=== PATIENT | female | born 1945 | race Caucasian/White ===

== ENCOUNTER → 2017-04-21 | Day surgery (SDC) | payer OTHER ==
[~2017-04-21] MED LIST: AMLO5TAB96 PO; BUPIVACAINE/EPINEPHRINE 0.25% 50 ML VIAL ONE; HYCO5UDC PO; ISOSULFAN BLUE 50 MG/5 ML VIAL SQ ONE; LACTATED RINGER'S 1000 ML INJ 1,000 ML ONE; LIDOCAINE 1%/EPINEPHrine 1:200,000 PF SOLN 30 ML VIAL ONE; LOVA1TAB47 PO; MECL25 PO; METO50TA PO; MIDAZOLAM HCL 2 MG/2 ML VIAL ONE; ONDANSETRON HCL 4 MG/2 ML VIAL IV PUSH ONE; PRIN10TA PO; PROPOFOL 200 MG/20 ML AMP IV ONE; SODIUM CHLORIDE 0.9% INJ 100 ML IV ONE; TRIA37.512 PO; VANCOMYCIN HCL 1000 MG VIAL ONE; ZITH500T PO; ceFAZolin 2 GM PREMIX 0 ML ONE; traMADol HCL 50 MG TAB ONE
--- NOTE | 2017-04-27 14:25 | TN ---
cc: DON ESCOBAR MD DATE OF SURGERY: 04/21/2017 PREOPERATIVE DIAGNOSIS Right breast mass, ductal carcinoma. POSTOPERATIVE DIAGNOSIS Right breast mass, ductal carcinoma. PROCEDURE PERFORMED 1. Right breast lumpectomy 2. Right axillary sentinel lymph node biopsy. 3. Oncoplastic tissue rearrangement with flap closure 8 x 3 cm. SURGEON Don Escobar MD. PREPAR[employer] PLANT SUPERVISOR: Dr. Sloan ANESTHESIA GETA. IV FLUIDS See anesthesia sheet. ESTIMATED BLOOD LOSS: 5 cc. DRAINS: None. COMPLICATIONS None. WOUND CLASSIFICATION: Clean. SPECIMENS: 1. Right axillary tissue x2 2. Right axillary sentinel lymph node. 3. Right breast lumpectomy short stitch superior, long stitch lateral, deep stitch double. FINDINGS: Good hemostasis, sentinel lymph node with 5614 count on gamma probe zero backgrounds. INDICATION The patient is a 71 old female who presented with palpable right lateral breast 2.2 cm breast mass. She underwent mammography with biRADS 4, underwent biopsy showing ductal carcinoma therefore decision was made after full discussion regarding breast conservation therapy or mastectomy with reconstruction for excision the patient elected for breast conservation with lumpectomy, sentinel lymph node biopsy and plan for radiation therapy. PROCEDURE IN DETAIL The patient is taken operating suite, placed in supine position. She was prepped and draped in usual sterile fashion after induction of general trache anesthesia. Brief time-out stating correct patient, procedure and surgical site were and all good with us. Attention directed to the right axilla where a small incision was made at the inferior hairline using gamma probe directed guidance dissection to the clavipectoral fascia deepened to the axilla to identify the sentinel lymph node. There was a small axillary tissue that was sent for pathology. However, did not contain initial sentinel node. Final sentinel node [place] 5614 on gamma probe once this was identified and removed zero background count and no palpable adenopathy noted. Next attention was directed to the right breast. Markings were done in order to identify the mass that was noted to be 1 cm from the nipple-areolar complex and very close the skin. Decision was made for removal of superficial skin just above the mass with the mass specimen. A decision was made and a keyhole like fashion. Starting out a Curvilinear to replicate lateral aspect of the curvature of the nipple areola and then extended laterally again in a keyhole like fashion. This was done with a 15 blade. Further dissection done with electro Bovie cautery dissection done, <<5:14>> mass in order to grossly obtained negative margins intraoperatively. The breast mass was again rather large in comparison to the breast and the margin came close to the pectoralis chest wall. The mass was marked with a short stitch superior, long stitch lateral and deep stitch double stitched placed on deep margin. This was sent for pathology. Hemostasis obtained. Superior inferior flaps were mobilized in order to reconfigure the breast tissue into a more aesthetically pleasing arrangement. The defect was approximately 5 cm x 2.5 centimeter and 4.5 cm deep, again upon immobilization of the flaps in order to reapproximate breast to more of anatomic anesthetically better arrangement was done. The tissue was irrigated and these were closed and layers using 3-0 Vicryl suture, a curvilinear aspect of the flap was sutured around the areola and creating a small linear defect laterally was sutured to approximate for a single straight line incision. Again local anesthetic injected 4-0 Monocryl was used for running subcuticular suture. Sterile dressings then placed including Steri-Strips, Mastisol, Telfa and Tegaderm. The axilla was closed also in layers of 3-0 Vicryl and 4-0 Monocryl. All lap, instrument counts were correct at the end of the procedure. The patient tolerated the procedure well. There is no intraoperative complication. The patient was x-rayed and taken to stable to the PACU. MD ERLIN Coles/diego /1:22 PM /2:09 PM
== END | disposition home or self-care (01) ==
LOC: ESDC 06:13
PROVIDERS: ATTEND Surgery
DX: C50.911 Malignant neoplasm of unspecified site of right female breast (principal)
CPT/HCPCS: 00400; 01610; 19301; 38525; 38792; 88307; J2250; J2405; J3010; J3370; J7120; Q9968; J0690